=== PATIENT | female | born 1975 | race Caucasian/White ===

== ENCOUNTER 2016-12-02 10:14 | Day surgery (SDC) | payer OTHER ==
--- NOTE | ~2016-12-02 | EGD ---
EGD REPORT [facility] [address] [id number] NAME: ORDNEY DORADO : [birth year] [place] [facility] [place] [id number] AGE: 41 ADM/REG DATE : 12/02/16 MR#: [id number] REPORT SERV DATE: 12/02/16 DICTATED BY: DATE: REPORT STATUS : Draft TRANSCRIBED BY: [employer] DATE: 12/02/16 [facility] Patient Name: Rodney Dorado Date of : 1975 Attending MD: SHARI SERRANO MD Procedure Date No Time: 12/02/2016 Procedure: Colonoscopy Indications: Epigastric abdominal pain, Abdominal pain in the right lower quadrant, Abdominal pain in the right upper quadrant, FH of Colonic Polyps - 1st degree relative, Abnormal CT of the GI tract Referring MD: SHARI TRUJILLO MD, Radha Hand Medicines: Propofol per Anesthesia Complications: No immediate complications. Procedure: Pre-Anesthesia Assessment: - ASA Grade Assessment: II - A patient with mild systemic disease. After I obtained informed consent, the scope was passed under direct vision. Throughout the procedure, the patient's blood pressure, pulse, and oxygen saturations were monitored continuously. The CF [id number] was introduced through the anus and advanced to the terminal ileum. The colonoscopy was performed without difficulty. The patient tolerated the procedure well. The quality of the bowel preparation was good. Findings: The perianal and digital rectal examinations were normal. The terminal ileum appeared normal. Biopsies were taken with a cold forceps for histology. to r/o microscopic ileitis The colon (entire examined portion) appeared normal. Biopsies were taken with a cold forceps from the right colon for evaluation of microscopic colitis. Biopsies were taken with a cold forceps from the left colon for evaluation of microscopic colitis. A sessile polyp was found in the ascending colon. The polyp was 3 mm in size. The polyp was removed with a cold biopsy forceps. Resection and retrieval were complete. A sessile polyp was found in the descending colon. The polyp was 3 mm in size. The polyp was removed with a cold biopsy forceps. Resection and retrieval were complete. Two sessile polyps were found in the sigmoid colon. The polyps were 2 to 3 mm in size. These polyps were removed with a cold biopsy forceps. Resection and retrieval were complete. Non-bleeding internal hemorrhoids were found during retroflexion and were mild, small and Grade I (internal hemorrhoids that do not prolapse). EGD REPORT [address] [id number] NAME: RODNEY DORADO : [birth year] [place] [facility] [place] [id number] AGE: 41 ADM/REG DATE : 12/02/16 MR#: [id number] REPORT SERV DATE: 12/02/16 DICTATED BY: DATE: REPORT STATUS : Draft TRANSCRIBED BY: [employer] DATE: 12/02/16 Impression: - The examined portion of the ileum was normal. Biopsied. - The entire examined colon is normal. Biopsied. - One 3 mm polyp in the ascending colon. Resected and retrieved. - One 3 mm polyp in the descending colon. Resected and retrieved. - Two 2 to 3 mm polyps in the sigmoid colon. Resected and retrieved. - Non-bleeding internal hemorrhoids. Recommendation: - Patient has a contact number available for emergencies. The signs and symptoms of potential delayed complications were discussed with the patient. Return to normal activities tomorrow. Written discharge instructions were provided to the patient. - Return to previous diet. - Continue present medications. - Await pathology results. - Repeat colonoscopy in 3 - 5 years for surveillance based on pathology results. - Return to referring physician as previously scheduled. - Discharge patient to home. Procedure Code(s): --- Professional --- 04496, Colonoscopy, flexible, proximal to splenic flexure; with biopsy, single or multiple Diagnosis Code(s): --- Professional --- K64.0, First degree hemorrhoids D12.5, Benign neoplasm of sigmoid colon D12.4, Benign neoplasm of descending colon D12.2, Benign neoplasm of ascending colon R10.13, Epigastric pain R10.31, Right lower quadrant pain R10.11, Right upper quadrant pain Z83.71, Family history of colonic polyps R93.3, Abnormal findings on diagnostic imaging of other parts of digestive tract CPT copyright 2013 [employer]. All rights reserved. The codes documented in this report are preliminary and upon audio narrator review may be revised to meet current compliance requirements. Shari Serrano MD EGD REPORT [facility] [address] [id number] NAME: RODNEY DORADO : [birth year] [place] [facility] [place] [id number] AGE: 41 ADM/REG DATE : 12/02/16 MR#: [id number] REPORT SERV DATE: 12/02/16 DICTATED BY: DATE: REPORT STATUS : Draft TRANSCRIBED BY: [employer] DATE: 12/02/16 SHARI SERRANO MD 12/02/2016 2:25 PM This report has been signed electronically. Number of Addenda: 0 Note Initiated On: 12/02/2016 1:13 PM Scope Withdrawal Time 0 hours 22 minutes 5 seconds [address] [id number]
[~2016-12-02 10:14] MED LIST: ANADS PO; ASAB PO; BACDS PO; BACTRONASA NAS; COMP10B PO; CYANO1000T PO; DSS PO; FERROUS SULF325 M1 PO; FIORICET PO; FLORASTOR250 MG PO; HYDREA PO; LEVAQUIN750 MG PO; LEXAPRO20 PO; METHOC750B PO; MIRAPEX1 MG PO; MONODOX100 MG PO; NEUR600 PO; NORCO1 TA1 PO; NORCO1 TA2 PO; OXYIR5 MG PO; PERCOCET1 TA2 PO; REMERON45 MG PO; STERAPRED DS10 MG; TRAZODONE150 MG PO; XANAX1 MG PO; ZOFRAN4 PO; ZOFRAN8 PO; ZYVOXPO PO; [UNRECOGNIZED DRUG - REMARK]
== END 2016-12-02 23:59 | disposition home or self-care (01) ==
LOC: DMU 10:14
PROVIDERS: Internal Medicine Gastroenterology
PROC: 0DBN8ZZ Excision of Sigmoid Colon, Via Natural or Artificial Opening Endoscopic (ICD-10-PCS; 2016-12-02)
PROC: 0DBM8ZZ Excision of Descending Colon, Via Natural or Artificial Opening Endoscopic (ICD-10-PCS; 2016-12-02)
PROC: 0DBK8ZZ Excision of Ascending Colon, Via Natural or Artificial Opening Endoscopic (ICD-10-PCS; 2016-12-02)
PROC: 0DBE8ZZ Excision of Large Intestine, Via Natural or Artificial Opening Endoscopic (ICD-10-PCS; principal; 2016-12-02 11:00)
DX: D12.2 Benign neoplasm of ascending colon (principal); D12.6 Benign neoplasm of colon, unspecified; K63.5 Polyp of colon; K64.0 First degree hemorrhoids; R10.13 Epigastric pain; R10.31 Right lower quadrant pain; R10.11 Right upper quadrant pain; R93.3 Abnormal findings on diagnostic imaging of other parts of digestive tract; G43.909 Migraine, unspecified, not intractable, without status migrainosus; D47.3 Essential (hemorrhagic) thrombocythemia; F41.9 Anxiety disorder, unspecified; F32.9 Major depressive disorder, single episode, unspecified; M19.90 Unspecified osteoarthritis, unspecified site; M79.7 Fibromyalgia; I10 Essential (primary) hypertension; R01.1 Cardiac murmur, unspecified; F17.210 Nicotine dependence, cigarettes, uncomplicated; Z92.21 Personal history of antineoplastic chemotherapy; Z83.71 Family history of colonic polyps; Z98.890 Other specified postprocedural states; Z90.711 Acquired absence of uterus with remaining cervical stump; Z88.0 Allergy status to penicillin; Z79.899 Other long term (current) drug therapy; Z88.1 Allergy status to other antibiotic agents; Z79.82 Long term (current) use of aspirin
CPT/HCPCS: 74020; 84703; 88305